=== PATIENT | female | born 1950 | race Caucasian/White ===

== ENCOUNTER 2025-04-11 12:25 | Inpatient (IN) | payer OTHER ==
[~2025-04-11] VITALS: Ht 157.5 cm; Wt 112.8 kg
[~2025-04-11 12:25] MED LIST: ALLO100T PO; APIX5TAB PO; CITA-77 PO; CLOP75TA70 PO; EMPA1TAB PO; FURO40TA4 PO; LEVO75TA6 PO; METO25TA93 PO; SACU1TAB7 PO; SPIR25TA8 PO
[2025-04-11] MEDS: ALBUTEROL SULF 2.5 MG/0.5ML(0.5%) NEB SOLN HHN ONE (13:24)
[2025-04-11] MEDS: IPRATROPIUM BROM 0.5 MG/2.5ML INH SOL HHN ONE (13:24)
--- NOTE | 2025-04-11 13:29 | ED.PDOC ---
SOB-HPI HPI Comments 74y F who presents to the ED for chief complaint of shortness of breath. Pt states she has been having flu like symptoms with associated cough, congestion, phlegm with associated yellow mucus , chills and shortness of breath for the past 2x days. Pt states she live in [facility] and denies any sick contacts. Pt otherwise in the ED has stable vitals. Pt denies any other symptoms at this time. Chief Complaint: Shortness of Breath Time Seen by MD: 13:25 Reviewed notes: Medications, Allergies Information Source: Patient Mode of Arrival: Wheelchair Brought in by: self Severity: Moderate Timing: Days Duration: Since onset Context: At Rest PE Risk Factors: None History of: COPD, CHF Prehospital treatment: None Modifying Factors: Nothing Associated Signs and Symptoms: Cough, Nasal Congestion If cough with SOB: Productive, Yellow Past Medical History PAST MEDICAL HISTORY: CHF, CKF, COPD, CVA, High Lipids, HTN, [place] Surgical History: CABG, Pacemaker, PTCA Surgical History (Other): cataracts, L leg surgery, 13x stents placed, 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 History: Denies all 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 Hx Family History Family History: Family hx of HTN Social History Smoker: Non-Smoker Alcohol: Occasionally Drugs: Denies Drug Use Lives In: Home Constitutional: reports: chills; denies: diaphoresis, fatigue, fever, malaise, sweats, weakness, others EENTM: reports: nose congestion; denies: blurred vision, double vision, ear bleeding, ear discharge, ear drainage, ear pain, ear ringing, eye pain, eye redness, hearing loss, mouth pain, mouth swelling, nasal discharge, nose bleeding, nose pain, photophobia, tearing, throat pain, throat swelling, voice changes, others Respiratory: reports: cough, shortness of breath; denies: hemoptysis, orthopnea, SOB at rest, SOB with excertion, stridor, wheezing, others Cardiovascular: denies: chest pain, dizzy spells, diaphoresis, Dyspnea on exertion, edema, irregular heart beat, left arm pain, lightheadedness, palpitations, PND, syncope, others Gastrointestinal: denies: abdomen distended, abdominal pain, blood streaked bowels, constipated, diarrhea, dysphagia, difficulty swallowing, hematemesis, melena, nausea, poor appetite, poor fluid intake, rectal bleeding, rectal pain, vomiting, others Genitourinary: denies: abnormal vagina bleeding, burning, dyspareunia, dysuria, flank pain, frequency, hematuria, incontinence, pain, , vagina di scharge, urgency, others Neurological: denies: dizziness, fainting, headache, left sided numbness, left sided weakness, numbness, paresthesia, pre-existing deficit, right sided numbness, right sided weakness, seizure, speech problems, tingling, tremors, weakness, others Musculoskeletal: denies: back pain, gout, joint pain, joint swelling, muscle pain, muscle stiffness, neck pain, others Integumetry: denies: bruises, change in color, change in hair/nails, dryness, laceration, lesions, lumps, rash, wounds, others Allergic/Immunocompromised: denies: Difficulty Healing, Frequent Infections, Hives, Itching, others Hematologic/Lymphatic: denies: anemia, blood clots, easy bleeding, easy bruising, swollen glands, others Endocrine: denies: excessive hunger, excessive sweating, excessive thirst, excessive urination, flushing, intolerance to cold, intolerance to heat, unexplained weight gain, unexplained weight loss, others Psychiatric: denies: anxiety, bipolar disorder, depression, hopeless, panic disorder, schizophrenia, sleepless, suicidal, others All Other Systems: Reviewed and Negative Physical Exam General Appearance: Moderate Distress, Obese HEENT: Normal ENT Inspection, Pharynx Normal, TMs Normal Neck: Full Range of Motion, Non-Tender, Normal, Normal Inspection Respiratory: Chest Non-Tender, Decreased Breath Sounds, No Accessory Muscle Use, Respiratory Distress, Wheezing Cardiovascular: No Edema, No JVD, No Murmur, No Gallop, Normal Peripheral Pulses, Regular Rate/Rhythm Breast Exam: Deferred Gastrointestinal: No Organomegaly, Non Tender, No Pulsatile Mass, Normal Bowel Sounds, Soft Genitalia: Deferred Pelvic: Deferred Rectal: Deferred Extremities: No calf tenderness, Normal capillary refill, Normal inspection, Normal range of motion, Non-tender, No pedal edema Musculoskeletal : Apperance: Normal Neurologic: Alert, theoretical physicist II-XII nml as Tested, No Motor Deficits, Normal Affect, Normal Mood, No Sensory Deficits Cerebellar Function: Normal Reflexes: Normal Skin: Dry, Pallor, Warm Lymphatic: No Adenopathy EKG EKG : Pulse Rate (adult): 74 [place]: Normal Cardiac Rhythm: NSR Block: None Hypertrophy: None ST: Normal Was a procedure done? Was a procedure done?: No Differential Dx Differential Diagnosis: Bronchitis, CHF, COPD, Myocardial infarction, Pneumonia, Pulmonary Embolism, Respiratory Distress, Pharyngitis, URI Comments COVID, Influenza A and B X-Ray, Labs, Meds, VS Vital Signs Date Time Temp Pulse Resp B/P (MAP) Pulse Ox O2 Delivery O2 Flow Rate FiO2 04/11/25 13:29 74 04/11/25 13:24 18 99 Room Air* 0 21 04/11/25 12:29 97.3 78 20 144/117 96 97.3 Lab Test 04/11/25 16:00 04/11/25 14:09 04/11/25 13:10 Range/Units Troponin I High Sensitivity 64 *H 72 *H 72 *H </=34 ng/L White Blood Count 7.9 4.4-10.8 10^3/uL Red Blood Count 4.08 4.0-5.20 10^6/uL Hemoglobin 13.8 12.2-16.2 g/dL Hematocrit 41.1 36.0-46.0 % Mean Corpuscular Volume 100.8 H 80.0-100.0 fL Mean Corpuscular Hemoglobin 33.9 H 28.0-32.0 pg Mean Corpuscular Hemoglobin Concent 33.7 32.0-36.0 g/dL Red Cell Distribution Width 14.0 11.8-14.3 % Platelet Count 195 140-450 10^3/uL Mean Platelet Volume 8.1 6.9-10.8 fL Neutrophils (%) (Auto) 69.6 37.0-80.0 % Lymphocytes (%) (Auto) 16.4 10.0-50.0 % Monocytes (%) (Auto) 11.6 0.0-12.0 % Eosinophils (%) (Auto) 2.0 0.0-7.0 % Basophils (%) (Auto) 0.4 0.0-2.0 % Neutrophils # (Auto) 5.5 1.6-8.6 10 ^3/uL Lymphocytes # (Auto) 1.3 0.4-5.4 10 ^3/uL Monocytes # (Auto) 0.9 0-1.3 10 ^3/uL Eosinophils # (Auto) 0.2 0-0.8 10 ^3/uL Basophils # (Auto) 0 0-0.2 10 ^3/uL Nucleated Red Blood Cells 0.1 % Sodium Level 141 136-145 mmol/L Potassium Level 3.7 3.5-5.1 mmol/L Chloride Level 106 98-107 mmol/L Carbon Dioxide Level 26 20-31 mmol/L Anion Gap 9 5-15 Blood Urea Nitrogen 19 9-23 mg/dL Creatinine 1.15 H 0.550-1.02 mg/dL Glomerular Filtration Rate Calc 50 >90 mL/min BUN/Creatinine Ratio 16.5 10.0-20.0 Serum Glucose 101 74-106 mg/dL Calcium Level 9.3 8.7-10.4 mg/dL B-Type Natriuretic Peptide 194.53 0-100 pg/mL Current Medications Medications (Trade) Dose Ordered Sig/Bonilla Route Start Time Stop Time Status Last Admin Methylprednisolone Sodium Succinate (Solu Medrol) 125 mg ONCE ONCE IV 04/11/25 13:15 04/11/25 13:16 DC 04/11/25 16:23 Ipratropium [place] (Atrovent Medneb) 1 mg ONCE ONCE [facility] 04/11/25 13:15 04/11/25 13:16 DC 04/11/25 13:24 Albuterol (Ventolin Medneb) 20 mg ONCE ONCE [facility] 04/11/25 13:15 04/11/25 13:16 DC 04/11/25 13:24 PROCEDURE(s): CXRP - CHEST PORTABLE IMPRESSION: 1. Cardiomegaly with CHF IV Hep-Lock was established The patient was given Lasix 40 mg IV push after the chest x-ray shows CHF The patient was given Solu-Medrol 125 mg IV push The patient was given a continuous breathing treatment of albuterol and Atrovent. The patient's CBC is within normal limits The chemistry panel shows a creatinine of 1.15 but otherwise within normal range. The troponin level has remained elevated at 72 and 64 The patient is being admitted at this time The patient understands and agrees with the management. Images Reviewed?: Images reviewed and evaluated by me Time of 1ST Reevaluation: 13:55 Reevaluation 1ST: Unchanged Patient Education/Counseling: Diagnosis, Treatment, Prognosis Family Education/Counseling: No Family Present SEPSIS Sepsis Screen Date sepsis recognized/suspect: Apr 11, 2025 Time Sepsis recognized/suspect: 1232 Recent Procedure: No On Antibiotic Therapy: No Respiratory Rate >20: No Heart Rate >90: No Temp<36 C (96.8 F) or >38.3 C: No SBP <90 or MAP <65 mmHG: No New Acute Mental Status Change: No Is the patient on CPAP, BIPAP,: No Physician Orders Urinalysis (04/11/25 13:02) Chest Portable (04/11/25 13:02) Heplock Iv (04/11/25 13:02) Pulse Oximetry (04/11/25 13:02) Steam Fitter Supervisor Maintenance (04/11/25 13:02) Blood Pressure (04/11/25 13:02) Electrocardigram (04/11/25 13:02) Electrocardigram (04/11/25 14:02) Electrocardigram (04/11/25 16:02) Vital Signs Date Time Temp Pulse Resp B/P (MAP) Pulse Ox O2 Delivery O2 Flow Rate FiO2 04/11/25 13:29 74 04/11/25 13:24 18 99 Room Air* 0 21 04/11/25 12:29 97.3 78 20 144/117 96 97.3 Laboratory Tests Test 04/11/25 13:10 White Blood Count 7.9 10^3/uL (4.4-10.8) Medications Medications Dose Ordered Sig/Bonilla Route Start Time Stop Time Status Last Admin Dose Admin Albuterol 20 mg ONCE ONCE [facility] 04/11/25 13:15 04/11/25 13:16 DC 04/11/25 13:24 Ipratropium [place] 1 mg ONCE ONCE [facility] 04/11/25 13:15 04/11/25 13:16 DC 04/11/25 13:24 Methylprednisolone Sodium Succinate 125 mg ONCE ONCE IV 04/11/25 13:15 04/11/25 13:16 DC 04/11/25 16:23 Departure 1 Departure Time of Disposition: 16:49 Impression: Primary Impression: Acute on chronic diastolic heart failure Additional Impressions: COPD exacerbation Elevated troponin I level Disposition: 09 ADMITTED INPATIENT Admit to: [facility] Condition: Fair Critical Care Note Critical Care Time?: Yes (45 min-critical care time only) Stability Stability form required: Yes Unstable for transfer: Telemetry monitoring (Telemetry monitoring required), ED Physician Assesment (Clinical assesment) Heart Score Heart Score: Heart Score Response (Comments) Value History Moderate Suspicious 1 EKG Normal 0 Age >65 2 Risk Factors >3 or Hx ASHD 2 Troponin 1-2 x's Normal limit 1 Total 6 I personally scribed for RAVINDER RODGERS MD ([email or web address]) on 04/11/25 at 13:29. Electronically submitted by Raffi Rowland ([employer]). I personally scribed for RAVINDER RODGERS MD ([email or web address]) on 04/11/25 at 14:36. Electronically submitted by Raffi Rowland ([employer]). RAVINDER RODGERS MD Apr 11, 2025 13:29
[2025-04-11 13:32] LABS: Hematocrit 41.1 % (36.0-46.0); Hemoglobin 13.8 g/dL (12.2-16.2); Mean Corpuscular Hemoglobin 33.9 pg (28.0-32.0); Mean Corpuscular Volume 100.8 fL (80.0-100.0); Nucleated Red Blood Cells % 0.1 %
[2025-04-11 13:37] LABS: Chloride 106 mmol/L (98-107); Potassium 3.7 mmol/L (3.5-5.1); Sodium 141 mmol/L (136-145)
[2025-04-11 13:38] LABS: Anion Gap 9 (5-15); Calcium 9.3 mg/dL (8.7-10.4); Carbon Dioxide 26 mmol/L (20-31)
[2025-04-11 13:43] LABS: BUN/Creatinine Ratio 16.5 (10.0-20.0); Blood Urea Nitrogen 19 mg/dL (9-23); Glucose 101 mg/dL (74-106)
--- NOTE | 2025-04-11 13:46 | DVH ---
INDICATION: sob TECHNIQUE: Frontal view of the chest. COMPARISON: XY CHEST XRAY 1 VIEW on DOS: 01/02/24 FINDINGS: Left pacemaker.. Cardiomegaly. There is no evidence of pleural disease. The lungs are clear. The bony structures of the chest are intact without fracture. IMPRESSION: 1. Cardiomegaly with CHF
[2025-04-11] MEDS: methylPREDNISolone SOD SUCC 125 MG/2 ML VL IV ONE (16:23)
[2025-04-11] MEDS ORDERED: ACETAMINOPHEN 325 MG TAB PO PRN (16:30)
[2025-04-11] MEDS: FUROSEMIDE 40 MG/4 ML VIAL IV ONE ×2 (16:30→18:29)
[2025-04-11] MEDS ORDERED: ONDANSETRON HCL 4 MG/2 ML VIAL IV PRN (16:30)
[2025-04-11] MEDS: AZITHROMYCIN 500MG/250ML 250 ML IV ONE (16:30)
--- NOTE | 2025-04-11 17:55 | DVHHP2 ---
History of Present Illness Reason for Visit: Shortness for breath History of Present Illness 74-year-old female presents for evaluation of shortness for breath. Patient endorses a two day history of feeling congested with associated cough with yellow phlegm as well as generalized weakness with fatigue. Reports mild chest pressure as well. Reports intermittent chills. Past Medical History Chronic kidney disease, CHF, COPD, CVA, dyslipidemia, hypertension Past Surgical History CABG, pacemaker, PTCA, left leg surgery Family History Noncontributory Smoke: No Drugs: None Lives: with Family Review of Systems Review of Systems Review of systems are currently negative otherwise addressed in HPI. Allergies: Coded Allergies: Heparin (Verified Allergy, Unknown, 04/11/25) Medications Current Medications Medications Dose Ordered Sig/Bonilla Route Start Time Stop Time Status Last Admin Dose Admin Furosemide 20 mg BIDD IV 04/12/25 06:00 Azithromycin 250 ml @ 125 mls/hr DAILY IV 04/12/25 10:00 Albuterol 2.5 mg Q6HPRN PRN NEB 04/11/25 16:30 Empaglifozin 10 mg DAILY PO 04/12/25 10:00 Levothyroxine Sodium 75 mcg QAM@0600 PO 04/12/25 06:00 Sacubitril/ Valsartan 1 tab BID PO 04/11/25 22:00 Apixaban 5 mg BID PO 04/11/25 22:00 Clopidogrel Bisulfate 75 mg DAILY PO 04/12/25 10:00 Metoprolol Succinate 25 mg DAILY PO 04/12/25 10:00 Ondansetron HCl 4 mg Q4HP PRN IV 04/11/25 16:30 Acetaminophen 650 mg Q6HP PRN PO 04/11/25 16:30 Exam Vital Signs Vital Signs Date Time Temp Pulse Resp B/P (MAP) Pulse Ox O2 Delivery O2 Flow Rate FiO2 04/11/25 17:09 98.0 93 20 150/58 (88) 99 98.0 04/11/25 16:24 Room Air 0 04/11/25 16:23 21 Exam Gen: 74-year-old female in mild distress Skin: Warm, dry, normal color and texture, no rash. HEENT: Normocephalic atraumatic, mucous membranes moist and pink. Neck: Cervical and supraclavicular nodes normal without enlargement, trachea is midline, thyroid gland is normal without masses. Pulmonary: Rhonchi Cardiac: Regular rate and rhythm. No murmur Abdomen: Soft, nontender, nondistended, bowel sounds present all 4 quadrants, no guarding, no rigidity, no organomegaly. Extremities: No cyanosis, clubbing, no edema Neuro: Cranial nerves II through XII grossly intact, normal affect and speech, no focal motor deficits. Labs/Xrays ORDERING PHYSICIAN: RAVINDER RODGERS MD PROCEDURE(s): CXRP - CHEST PORTABLE REASON: sob ORDER NUMBER(s): [id number], ACCESSION NUMBER(s): [id number] INDICATION: sob TECHNIQUE: Frontal view of the chest. COMPARISON: XY CHEST XRAY 1 VIEW on DOS: 01/02/24 FINDINGS: Left pacemaker.. Cardiomegaly. There is no evidence of pleural disease. The lungs are clear. The bony structures of the chest are intact without fr acture. IMPRESSION: 1. Cardiomegaly with CHF Labs Test 04/11/25 16:00 04/11/25 13:10 Range/Units Troponin I High Sensitivity 64 *H </=34 ng/L White Blood Count 7.9 4.4-10.8 10^3/uL Red Blood Count 4.08 4.0-5.20 10^6/uL Hemoglobin 13.8 12.2-16.2 g/dL Hematocrit 41.1 36.0-46.0 % Mean Corpuscular Volume 100.8 H 80.0-100.0 fL Mean Corpuscular Hemoglobin 33.9 H 28.0-32.0 pg Mean Corpuscular Hemoglobin Concent 33.7 32.0-36.0 g/dL Red Cell Distribution Width 14.0 11.8-14.3 % Platelet Count 195 140-450 10^3/uL Mean Platelet Volume 8.1 6.9-10.8 fL Neutrophils (%) (Auto) 69.6 37.0-80.0 % Lymphocytes (%) (Auto) 16.4 10.0-50.0 % Monocytes (%) (Auto) 11.6 0.0-12.0 % Eosinophils (%) (Auto) 2.0 0.0-7.0 % Basophils (%) (Auto) 0.4 0.0-2.0 % Neutrophils # (Auto) 5.5 1.6-8.6 10 ^3/uL Lymphocytes # (Auto) 1.3 0.4-5.4 10 ^3/uL Monocytes # (Auto) 0.9 0-1.3 10 ^3/uL Eosinophils # (Auto) 0.2 0-0.8 10 ^3/uL Basophils # (Auto) 0 0-0.2 10 ^3/uL Nucleated Red Blood Cells 0.1 % Sodium Level 141 136-145 mmol/L Potassium Level 3.7 3.5-5.1 mmol/L Chloride Level 106 98-107 mmol/L Carbon Dioxide Level 26 20-31 mmol/L Anion Gap 9 5-15 Blood Urea Nitrogen 19 9-23 mg/dL Creatinine 1.15 H 0.550-1.02 mg/dL Glomerular Filtration Rate Calc 50 >90 mL/min BUN/Creatinine Ratio 16.5 10.0-20.0 Serum Glucose 101 74-106 mg/dL Calcium Level 9.3 8.7-10.4 mg/dL B-Type Natriuretic Peptide 194.53 0-100 pg/mL SEPSIS Sepsis Screen Date sepsis recognized/suspect: Apr 11, 2025 Time Sepsis recognized/suspect: 1709 Recent Procedure: No On Antibiotic Therapy: No Respiratory Rate >20: No Heart Rate >90: Yes Temp<36 C (96.8 F) or >38.3 C: No SBP <90 or MAP <65 mmHG: No New Acute Mental Status Change: No Is the patient on CPAP, BIPAP,: No Physician Orders Urinalysis (04/11/25 13:02) Chest Portable (04/11/25 13:02) Heplock Iv (04/11/25 13:02) Pulse Oximetry (04/11/25 13:02) Electrolog Operator (04/11/25 13:02) Blood Pressure (04/11/25 13:02) Electrocardigram (04/11/25 13:02) Electrocardigram (04/11/25 14:02) Electrocardigram (04/11/25 16:02) Furosemide Injection (Lasix Injection) (04/12/25 06:00) Azithromycin 500mg/250ml (Zithromax 500m (04/11/25 16:30) Azithromycin 500mg/250ml (Zithromax 500m (04/12/25 10:00) Albuterol Medneb (Ventolin Medneb) (04/11/25 16:30) Empagliflozin (Jardiance) (04/12/25 10:00) Levothyroxine Tablet (Synthroid Tablet) (04/12/25 06:00) Sacubitril-Valsartan (Entresto 24-26 Mg (04/11/25 22:00) Apixaban (Eliquis) (04/11/25 22:00) Clopidogrel Bisulfate (Plavix) (04/12/25 10:00) Metoprolol Xl Succinate (Toprol Xl) (04/12/25 10:00) Basic Metabolic Panel (04/12/25 04:00) Admit (04/11/25 16:22) Ondansetron Hcl (Zofran) (04/11/25 16:30) Complete Blood Count (04/12/25 04:00) Cardiac Diet-2gna,Lofat,Lochol (04/11/25 Dinner) Echo 2d Mode Cardiac Dop (04/11/25 16:22) Condition: Stable (04/11/25 16:22) Acetaminophen Tablet (Tylenol Tablet) (04/11/25 16:30) Bedrest With Bathroom Privileg (04/11/25 16:22) Aspirin Tablet (04/12/25 10:00) Vital Signs Date Time Temp Pulse Resp B/P (MAP) Pulse Ox O2 Delivery O2 Flow Rate FiO2 04/11/25 17:09 98.0 93 20 150/58 (88) 99 98.0 04/11/25 16:57 98.0 93 20 150/58 (88) 99 98.0 04/11/25 16:24 18 Room Air 0 04/11/25 16:23 94 Room Air* 0 21 04/11/25 13:29 74 04/11/25 13:24 18 99 Room Air* 0 21 04/11/25 12:29 97.3 78 20 144/117 96 97.3 Laboratory Tests Test 04/11/25 13:10 White Blood Count 7.9 10^3/uL (4.4-10.8) Medications Medications Dose Ordered Sig/Bonilla Route Start Time Stop Time Status Last Admin Dose Admin Albuterol 20 mg ONCE ONCE [facility] 04/11/25 13:15 04/11/25 13:16 DC 04/11/25 13:24 20 MG Ipratropium [place] 1 mg ONCE ONCE [facility] 04/11/25 13:15 04/11/25 13:16 DC 04/11/25 13:24 1 MG Methylprednisolone Sodium Succinate 125 mg ONCE ONCE IV 04/11/25 13:15 04/11/25 13:16 DC 04/11/25 16:23 125 MG Assessment/Plan Assessment/Plan Assessment Acute on chronic respiratory failure CHF with possible exacerbation Acute pneumonitis Hypertension History of [place] Status post pacemaker Plan Admit the patient to telemetry to the hospitalist IV Lasix Azithromycin Med nebs Resume home medications Continue treatment per orders Plan discussed with: Patient My Orders Orders - GLADYS GUERRA Procedure Category Date Status Time Furosemide Injection PHA 04/12/25 In Process (Lasix Injection) 06:00 Azithromycin PHA 04/11/25 In Process 500mg/250ml 16:30 Azithromycin PHA 04/12/25 In Process 500mg/250ml 10:00 Albuterol Medneb PHA 04/11/25 In Process (Ventolin Medneb) 16:30 Empagliflozin PHA 04/12/25 In Process (Jardiance) 10:00 Levothyroxine Tablet PHA 04/12/25 In Process (Synthroid Tablet) 06:00 Sacubitril-Valsartan PHA 04/11/25 In Process (Entresto 24-26 Mg 22:00 Apixaban (Eliquis) PHA 04/11/25 In Process 22:00 Clopidogrel Bisulfate PHA 04/12/25 In Process (Plavix) 10:00 Metoprolol Xl PHA 04/12/25 In Process Succinate (Toprol Xl) 10:00 Basic Metabolic Panel LAB 04/12/25 Verified 04:00 Admit ADMIT 04/11/25 Transmitted 16:22 Ondansetron Hcl PHA 04/11/25 In Process (Zofran) 16:30 Complete Blood Count LAB 04/12/25 Verified 04:00 Cardiac DIET 04/11/25 Transmitted Diet-2gna,Lofat,Lochol Dinner Echo 2d Mode Cardiac US 04/11/25 Logged DOP 16:22 Condition: Stable [place]COE 04/11/25 In Process 16:22 Acetaminophen Tablet PHA 04/11/25 In Process (Tylenol Tablet) 16:30 Bedrest With Bathroom [place]COE 04/11/25 In Process Privileg 16:22 Aspirin Tablet PHA 04/12/25 Verified 10:00 Date of Service: Apr 11, 2025 Billing Provider: GLADYS GUERRA Common Visit Codes: [id number] INP/OBS CARE (HIGH) GLADYS GUERRA Apr 11, 2025 17:55
[2025-04-11 18:00] VITALS: BP 125/86; PULSE 86; RESP 18; TEMP 98.5; O2SAT 100
[2025-04-11 20:01] VITALS: BP 127/86; PULSE 93; RESP 18; O2SAT 100
[2025-04-11 20:54] VITALS: PULSE 85; RESP 15; O2SAT 99
[2025-04-11] MEDS: ALBUTEROL SULF 2.5 MG/0.5ML(0.5%) NEB SOLN NEB PRN (20:54)
[2025-04-11 21:00] VITALS: BP 156/53; PULSE 69; PULSE 82; RESP 16; RESP 20; TEMP 97.9; O2SAT 99
[2025-04-11 22:01] VITALS: BP 164/90; PULSE 89; RESP 20; TEMP 97.5; O2SAT 96
[2025-04-11] MEDS: APIXABAN 5 MG TAB PO SCH (22:40)
[2025-04-11] MEDS: SACUBITRIL-VALSARTAN 24mg/26mg TAB PO SCH (22:40)
[2025-04-12] VITALS (11 sets, daily range): BP systolic 127–159; BP diastolic 61–82; PULSE 66–83; RESP 14–20; TEMP 97.9–99; O2SAT 94–99
[2025-04-12] MEDS ORDERED: IPRATROPIUM BROM 0.5 MG/2.5ML INH SOL ONE (05:32)
[2025-04-12] MEDS ORDERED: LEVALBUTEROL HCL 1.25 MG/3 ML NEB ONE (05:32)
[2025-04-12] MEDS: LEVOTHYROXINE SODIUM 25 MCG TAB PO SCH (05:35)
[2025-04-12] MEDS: FUROSEMIDE 20 MG/2 ML VIAL IV SCH (05:36)
[2025-04-12 06:45] LABS: Nucleated Red Blood Cells % 0.0 %
[2025-04-12 06:47] LABS: Hematocrit 42.0 % (36.0-46.0); Hemoglobin 14.5 g/dL (12.2-16.2); Mean Corpuscular Hemoglobin 34.3 pg (28.0-32.0); Mean Corpuscular Volume 99.0 fL (80.0-100.0)
[2025-04-12 06:56] LABS: Chloride 105 mmol/L (98-107); Potassium 4.3 mmol/L (3.5-5.1); Sodium 141 mmol/L (136-145)
[2025-04-12 06:57] LABS: Anion Gap 10 (5-15); Calcium 9.7 mg/dL (8.7-10.4); Carbon Dioxide 26 mmol/L (20-31)
[2025-04-12 07:02] LABS: BUN/Creatinine Ratio 13.0 (10.0-20.0); Blood Urea Nitrogen 17 mg/dL (9-23)
[2025-04-12 07:04] LABS: Glucose 133 mg/dL (74-106)
[2025-04-12] MEDS ORDERED: EMPAGLIFLOZIN 10 MG TAB PO SCH (10:00)
[2025-04-12 10:43] LABS: Urine Budding Yeast OCCASIONAL /hpf (None Seen); Urine Protein, UAD Negative (Negative)
[2025-04-12] MEDS: CLOPIDOGREL BISULFATE 75 MG TAB PO SCH (11:28)
[2025-04-12] MEDS: ASPirin-EC 81 mg tab PO SCH (11:29)
[2025-04-12] MEDS: EMPAGLIFLOZIN 10 MG TAB PO SCH (11:29)
[2025-04-12] MEDS: METOPROLOL SUCCINATE XL 50 MG TAB PO SCH (11:30)
[2025-04-12] MEDS: AZITHROMYCIN 500MG/250ML 250 ML IV SCH (11:34)
--- NOTE | 2025-04-12 13:13 | DVHPN2 ---
Changes from previous H/P or p: No Changes Objective Vitals Vital Signs Date Time Temp Pulse Resp B/P (MAP) Pulse Ox O2 Delivery O2 Flow Rate FiO2 04/12/25 11:30 82 144/82 04/12/25 10:11 17 99 04/12/25 10:05 Room Air* 0 21 04/12/25 08:52 98.5 98.5 Intake/Output Intake and Output 04/12/25 07:00 Intake Total 1040 ml Balance 1040 ml Intake Oral 1040 ml # Voids 5 Medications Current Medications Medications Dose Ordered Sig/Bonilla Route Start Time Stop Time Status Last Admin Dose Admin Furosemide 20 mg BIDD IV 04/12/25 06:00 04/12/25 05:36 20 MG Azithromycin 250 ml @ 125 mls/hr DAILY IV 04/12/25 10:00 04/12/25 11:34 125 MLS/HR Albuterol 2.5 mg Q6HPRN PRN NEB 04/11/25 16:30 04/12/25 10:05 2.5 MG Empaglifozin 10 mg DAILY PO 04/12/25 10:00 04/12/25 11:29 10 MG Levothyroxine Sodium 75 mcg QAM@0600 PO 04/12/25 06:00 04/12/25 05:35 75 MCG Sacubitril/ Valsartan 1 tab BID PO 04/11/25 22:00 04/12/25 11:28 1 TAB Apixaban 5 mg BID PO 04/11/25 22:00 04/12/25 11:39 5 MG Clopidogrel Bisulfate 75 mg DAILY PO 04/12/25 10:00 04/12/25 11:28 75 MG Metoprolol Succinate 25 mg DAILY PO 04/12/25 10:00 04/12/25 11:30 25 MG Ondansetron HCl 4 mg Q4HP PRN IV 04/11/25 16:30 Acetaminophen 650 mg Q6HP PRN PO 04/11/25 16:30 Aspirin 81 mg DAILY PO 04/12/25 10:00 04/12/25 11:29 81 MG Laboratory Results Laboratory Tests 04/12/25 06:19 Chemistry Test 04/11/25 13:10 04/12/25 06:19 Calcium Level 9.3 mg/dL (8.7-10.4) 9.7 mg/dL (8.7-10.4) Cardiac Markers Test 04/11/25 13:10 B-Type Natriuretic Peptide 194.53 pg/mL (0-100) Urinalysis Test 04/12/25 09:55 Urine Color Colorless (Yellow) Urine Clarity Clear (Clear) Urine pH 5.0 (5.0-9.0) Urine Specific [place] 1.006 (1.001-1.035) Urine Protein Negative (Negative) Urine Ketones Negative (Negative) Urine Blood Negative /uL (Negative) Urine Nitrite Negative (Negative) Urine Bilirubin Negative (Negative) Urine Urobilinogen Normal mg/dL (Negative) Urine Leukocyte Esterase Trace /uL (Negative) Urine RBC 1 /hpf (0 - 4) Urine Microscopic WBC 1 /HPF (0-5) Urine Squamous Epithelial Cells Few /hpf (<5) Urine Bacteria None seen /hpf (None Seen) Urine Yeast (Budding) Occasional /hpf (None Urine Glucose Normal mg/dL (Normal) Labs and/or images reviewed: Labs reviewed by me, Image(s) reviewed by me Assessment/Plan Assessment/Plan Acute on chronic respiratory failure CHF with possible exacerbation: Consult for patient's director of collections and archives Dr. Marmolejo Acute pneumonitis Hypertension History of [place] Status post pacemaker Acute COPD exacerbation Hypercholesterolemia History of CVA History of CABG History of stents History of pacemaker Time spent 70 minutes Advanced care planning time 20 minutes Tamika test and flu test done in the urgent care yesterday was negative per patient PCP Dr. Street Plan discussed with: Patient My Orders Orders - CELESTINE HARDY MD Procedure Category Date Status Time Rapid Influenza A&B LAB 04/12/25 Verified 12:57 Covid19 Antigen Aminata LAB 04/12/25 Verified Date of Service: Apr 12, 2025 Billing Provider: CELESTINE HARDY MD Common Visit Codes: [id number] INP/OBS CARE(HIGH) CELESTINE HARDY MD Apr 12, 2025 13:13
[2025-04-12] MEDS: FUROSEMIDE 20 MG/2 ML VIAL IV ONE (14:49)
--- NOTE | 2025-04-12 15:38 | DVHINCON2 ---
Date Seen: Apr 12, 2025 Referring Physician MD Jeremiah Reason for Consultation CHF exacerbation History of Present Illness This is a 74-year-old female patient who presents to the emergency room with chief complaint of shortness of breath, cough, and congestion for three days prior to emergency room arrival. The patient states that she went to an appointment for an outpatient echocardiogram at her primary host's office and was told by office staff that she should be evaluated at the urgent care. The patient was taken to urgent care and then transferred over to the emergency room for her symptoms. Cardiology has now been consulted for CHF exacerbation. No twelve lead electrocardiogram found in patient's hard chart or via cardio food beverage server. The patient is also not on telemetry monitoring. A twelve lead electrocardiogram was ordered at time of assessment and reveals V paced rhythm. Initial troponin level of 72ng/L with down trend thereafter. The patient denies any cardiac symptoms at time of assessment such as chest pain, shortness of breath, palpitations, or dizziness. Significant past medical history includes severe coronary artery disease status post triple-vessel CABG in 2003, coronary artery disease status post multiple PTCAs X 15 RADHIKA (on Plavix and Eliquis), congestive heart failure, hypertension, dyslipidemia, presence of permanent pacemaker (Biotronik), unspecified atrial fibrillation (on Eliquis), severe mitral valve regurgitation status post MitraClip, COPD, thyroid disease, and obesity. The patient reports that she follows up with in the outpatient setting and also has a host at [facility] since having her MitraClip placed. The patient's most recent coronary angiogram took place at this facility on 06/08/2024 in which PTCA and stenting of the RCA was performed at that time by . Of note, patient has been here multiple times under a different medical record ( ). Past Medical History Past medical history reviewed. No other significant than mentioned above. Past Surgical History Triple-vessel CABG in 2003 MitaClip in December 2023 Permanent pacemaker insertion (Biotronik) on 09/28/2022 Left ankle surgery Family History: Cardiovascular disease G8 MOTHER G8 FATHER Diabetes mellitus G8 MOTHER FH: leukemia G8 FATHER Ischemic heart disease G8 FATHER Family History Family history reviewed. Social History Patient has a 60 pack-year history, quit smoking 30 years ago Denies any illicit drug use Admits to social alcohol use Allergies: Coded Allergies: Heparin (Verified Allergy, Unknown, 04/11/25) Home Meds Reported Medications Metoprolol Succinate (Metoprolol Succinate Er) 25 Mg Tab, 12.5 MG PO BID for 45 Days, #90 04/12/25 Spironolactone (Spironolactone) 25 Mg Tab, 1 TAB PO DAILY for 90 Days, #90 04/12/25 Clopidogrel Bisulfate (CLOPIDOGREL) 75 Mg Tab, 1 TAB PO DAILY for 90 Days, #90 04/12/25 Citalopram Hydrobromide (Citalopram Hydrobromide) 20 Mg Tab, 1 TAB PO DAILY for 90 Days, #90 04/12/25 Apixaban Base (ELIQUIS) 5 Mg Tab, 1 TAB PO BID for 30 Days, #60 04/12/25 Allopurinol (Allopurinol) 100 Mg Tab, 1 TAB PO DAILY for 90 Days, #90 04/12/25 Sacubitril-Valsartan (Entresto 49-51 mg) 1 Tab Tab, 1 TAB PO BID for 30 Days, #60 04/12/25 Furosemide (Furosemide) 40 Mg Tab, 1 TAB PO DAILY for 90 Days, #90 04/12/25 Levothyroxine Sodium (Levothyroxine Sodium) 75 Mcg Tab, 1 TAB PO DAILY for 90 Days, #90 04/12/25 Empagliflozin (Jardiance) 10 Mg Tab, 1 TAB PO DAILY for 90 Days, #90 TAKE 1 TABLET BY MOUTH ONCE DAILY IN THE MORNING 04/12/25 Home Meds Home medications reviewed. Current Medications Current Medications Medications (Trade) Dose Ordered Sig/Bonilla Route PRN Reason Start Time Stop Time Status Last Admin Furosemide (Lasix Injection) 20 mg BIDD IV 04/12/25 06:00 04/12/25 13:09 DC 04/12/25 05:36 Azithromycin 250 ml @ 125 mls/hr DAILY IV 04/12/25 10:00 04/12/25 11:34 Albuterol (Ventolin Medneb) 2.5 mg Q6HPRN PRN NEB SHORTNESS OF BREATH 04/11/25 16:30 04/12/25 10:05 Empaglifozin (Jardiance) 10 mg DAILY PO 04/12/25 10:00 04/11/25 16:39 DC Empaglifozin (Jardiance) 10 mg DAILY PO 04/12/25 10:00 04/12/25 11:29 Levothyroxine Sodium (Synthroid Tablet) 75 mcg QAM@0600 PO 04/12/25 06:00 04/12/25 05:35 Sacubitril/ Valsartan (Entresto 24-26 Mg tab) 1 tab BID PO 04/11/25 22:00 04/12/25 11:28 Apixaban (Eliquis) 5 mg BID PO 04/11/25 22:00 04/12/25 11:39 Clopidogrel Bisulfate (Plavix) 75 mg DAILY PO 04/12/25 10:00 04/12/25 11:28 Metoprolol Succinate (Toprol Xl) 25 mg DAILY PO 04/12/25 10:00 04/12/25 11:30 Ondansetron HCl (Zofran) 4 mg Q4HP PRN IV NAUSEA / VOMITING 04/11/25 16:30 Acetaminophen (Tylenol Tablet) 650 mg Q6HP PRN PO PAIN SCALE 1-3 OR TEMP>100.4 04/11/25 16:30 Aspirin (Ecotrin Enteric Coated Tablet) 81 mg DAILY PO 04/12/25 10:00 04/12/25 11:29 Furosemide (Lasix Injection) 40 mg BIDD IV 04/12/25 18:00 Review of Systems Constitutional: No symptom reported Ears, Nose, & Throat: No symptom reported Eyes: No symptom reported Neurological: No symptoms reported Pulmonary/Respiratory: Cough, congestion, shortness of breath Cardiovascular: No symptom reported Gastrointestinal: No symptom reported Genitourinary: No symptom reported Musculoskeletal: No symptom reported Skin: No symptom reported Psychiatric: No symptom reported Endocrine: No symptom reported Hematologic/Lymphatic: No symptom reported Vital Signs Vital Signs Date Time Temp Pulse Resp B/P (MAP) Pulse Ox O2 Delivery O2 Flow Rate FiO2 04/12/25 14:49 136/86 04/12/25 13:00 99.0 83 17 94 99.0 04/12/25 10:05 Room Air* 0 21 Physical Exam General Appearance: Cooperative. Obese Pulmonary/Respiratory: Clear, bilateral breaths sounds. Cardiovascular/Chest: Irregularly irregular rate and rhythm Peripheral Pulses: 2+ Radial (R). 2+ Radial (L). 2+ Pedal (R). 2+ Pedal (L) Abdominal Exam: Normal bowel sounds. Ankle Exam: Negative ankle edema Lower extremities: Negative lower extremity edema Neuro/Mental Status: A/OX4, coherent. Thoughts/Psych: Normal thought pattern. Appropriate mood and affect. Good judgment and insight. Appearance: No acute distress. Skin Exam: Normal inspection. Normal color. Warm and dry. Labs/Diagnostic Data Labs Test 04/12/25 09:55 04/12/25 06:19 04/11/25 16:00 04/11/25 13:10 Range/Units Urine Color Colorless Yellow Urine Clarity Clear Clear Urine pH 5.0 5.0-9.0 Urine Specific [place] 1.006 1.001-1.035 Urine Protein Negative Negative Urine Ketones Negative Negative Urine Blood Negative Negative /uL Urine Nitrite Negative Negative Urine Bilirubin Negative Negative Urine Urobilinogen Normal Negative mg/dL Urine Leukocyte Esterase Trace Negative /uL Urine RBC 1 0 - 4 /hpf Urine Microscopic WBC 1 0-5 /HPF Urine Squamous Epithelial Cells Few <5 /hpf Urine Bacteria None seen None Seen /hpf Urine Yeast (Budding) Occasional None Seen /hpf Urine Glucose Normal Normal mg/dL White Blood Count 10.0 # 4.4-10.8 10^3/uL Red Blood Count 4.24 4.0-5.20 10^6/uL Hemoglobin 14.5 12.2-16.2 g/dL Hematocrit 42.0 36.0-46.0 % Mean Corpuscular Volume 99.0 80.0-100.0 fL Mean Corpuscular Hemoglobin 34.3 H 28.0-32.0 pg Mean Corpuscular Hemoglobin Concent 34.6 32.0-36.0 g/dL Red Cell Distribution Width 13.7 11.8-14.3 % Platelet Count 209 140-450 10^3/uL Mean Platelet Volume 8.1 6.9-10.8 fL Neutrophils (%) (Auto) 93.9 H 37.0-80.0 % Lymphocytes (%) (Auto) 3.7 L 10.0-50.0 % Monocytes (%) (Auto) 2.2 0.0-12.0 % Eosinophils (%) (Auto) 0.0 0.0-7.0 % Basophils (%) (Auto) 0.2 0.0-2.0 % Neutrophils # (Auto) 9.4 H 1.6-8.6 10 ^3/uL Lymphocytes # (Auto) 0.4 0.4-5.4 10 ^3/uL Monocytes # (Auto) 0.2 0-1.3 10 ^3/uL Eosinophils # (Auto) 0 0-0.8 10 ^3/uL Basophils # (Auto) 0 0-0.2 10 ^3/uL Nucleated Red Blood Cells 0.0 % Sodium Level 141 136-145 mmol/L Potassium Level 4.3 3.5-5.1 mmol/L Chloride Level 105 98-107 mmol/L Carbon Dioxide Level 26 20-31 mmol/L Anion Gap 10 5-15 Blood Urea Nitrogen 17 9-23 mg/dL Creatinine 1.31 H 0.550-1.02 mg/dL Glomerular Filtration Rate Calc 43 >90 mL/min BUN/Creatinine Ratio 13.0 10.0-20.0 Serum Glucose 133 H 74-106 mg/dL Calcium Level 9.7 8.7-10.4 mg/dL Troponin I High Sensitivity 64 *H </=34 ng/L B-Type Natriuretic Peptide 194.53 0-100 pg/mL Assessment Acute on chronic decompensated HFrEF, NYHA class III NSTEMI, likely type II secondary to above Severe coronary artery disease with history of triple-vessel CABG and multiple PTCAs (on Plavix) Ischemic cardiomyopathy Unspecified atrial fibrillation (on Eliquis) Severe mitral valve regurgitation status post MitraClip (December 2023) Sick sinus syndrome status post permanent pacemaker insertion (Biotronik) Hypertension Hyperlipidemia COPD Hypothyroidism History of TIA Chronic kidney disease Morbid obesity Plan/Recommendation We will continue with the following plan/recommendations (Dr. Aceves): * Obtain transthoracic echocardiogram to evaluate cardiac function * Previous echocardiogram reveals from 06/08/2024 reveals EF 30% (under different ) * Initiate guideline directed medical therapy for CHF as renal function permits * Strict intake and output, daily weights, maintain fluid restriction and low- sodium diet * Preload and afterload reduction * [id number] VASc score: 7 points * Therapeutic Lovenox, transition back to Eliquis when appropriate * Beta-keith for rate control * Continue single antiplatelet therapy (Plavix) and lipid-lowering agent * AVOID TRIPLE THERAPY. PLEASE DO NOT RESTART ASPIRIN. * Upgrade to telemetry monitoring for close cardiac surveillance Case discussed with . Thank you for allowing us to care for this patient. Please call with any questions or concerns. Critical care time spent: 44 minutes This medical document was created using an electronic medical record system with voice recognition software and computerized dictation system. Although this document has been carefully reviewed, there might still be some phonetic and t ypographical errors. Occasional wrong-word or ``sound-alike substitutions may have occurred due to the inherent limitations of voice recognition software. These areas are purely typographical due to imperfections of the software programs and do not reflect any compromise in the patient's medical care. Please read the chart carefully and recognize, using context, where these snyder bstitutions have occurred. Plan discussed with: Patient NYHA Physical activity limitations: Class3(Marked) ordinary (activity causes symtoms) Date of Service: Apr 12, 2025 Billing Provider: LENCHO JEAN Cardiology Common Codes: [id number] INP/OBS CARE (High) Cardiology Consultation Codes: [id number] CONSULT <45MIN LENCHO JEAN Apr 12, 2025 15:38
[2025-04-12 16:08] LABS: Triglycerides 57.0 mg/dL (< 150)
[2025-04-12 16:09] LABS: Magnesium 1.9 mg/dL (1.6-2.6)
[2025-04-12 16:10] LABS: Cholesterol 141.0 mg/dL (< 200); HDL Cholesterol 52.0 mg/dL (40-59)
[2025-04-12] MEDS: FUROSEMIDE 40 MG/4 ML VIAL IV SCH (18:17)
[2025-04-12] MEDS ORDERED: ENOXAPARIN SOD 100 MG/1 ML SYRINGE SC SCH (22:00)
--- NOTE | 2025-04-12 23:02 | DVHINCON2 ---
Date Seen: Apr 12, 2025 Referring Physician MD Jeremiah Reason for Consultation CHF exacerbation History of Present Illness This is a 74-year-old female with a past medical history includes severe coronary artery disease status post triple-vessel CABG in 2003, coronary artery disease status post multiple PTCAs X 15 RADHIKA (on Plavix and Eliquis), congestive heart failure, hypertension, dyslipidemia, presence of permanent pacemaker (Biotronik), unspecified atrial fibrillation (on Eliquis), severe mitral valve regurgitation status post MitraClip, COPD, thyroid disease, and obesity who presents to the emergency room with a complaint of shortness of breath, cough, and congestion for three days prior to emergency room arrival. The patient states that she went to an appointment for an outpatient echocardiogram at her primary chromium plater's office and was told by office staff that she should be evaluated at the urgent care. The patient was taken to urgent care and then transferred over to the emergency room for her symptoms. No twelve lead electrocardiogram found in patient's hard chart or via cardio seismic prospecting observer. The patient is also not on telemetry monitoring. A twelve lead electrocardiogram was ordered at time of assessment and reveals V paced rhythm. Initial troponin level of 72ng/L with down trend thereafter. The patient denies any cardiac symptoms at time of assessment such as chest pain, shortness of breath, palpitations, or dizziness. The patient reports that she follows up with in the outpatient setting and also has a chromium plater at [facility] since having her MitraClip placed. The patient's most recent coronary angiogram took place at this facility on 06/08/2024 in which PTCA and stenting of the RCA was performed at that time by . Of note, patient has been here multiple times under a different medical record ( ). Cardiology has now been consulted for CHF exacerbation. Past Medical History Past medical history reviewed. No other significant than mentioned above. 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) Home Meds Reported Medications Metoprolol Succinate (Metoprolol Succinate Er) 25 Mg Tab, 12.5 MG PO BID for 45 Days, #90 04/12/25 Spironolactone (Spironolactone) 25 Mg Tab, 1 TAB PO DAILY for 90 Days, #90 04/12/25 Clopidogrel Bisulfate (CLOPIDOGREL) 75 Mg Tab, 1 TAB PO DAILY for 90 Days, #90 04/12/25 Citalopram Hydrobromide (Citalopram Hydrobromide) 20 Mg Tab, 1 TAB PO DAILY for 90 Days, #90 04/12/25 Apixaban Base (ELIQUIS) 5 Mg Tab, 1 TAB PO BID for 30 Days, #60 04/12/25 Allopurinol (Allopurinol) 100 Mg Tab, 1 TAB PO DAILY for 90 Days, #90 04/12/25 Sacubitril-Valsartan (Entresto 49-51 mg) 1 Tab Tab, 1 TAB PO BID for 30 Days, #60 04/12/25 Furosemide (Furosemide) 40 Mg Tab, 1 TAB PO DAILY for 90 Days, #90 04/12/25 Levothyroxine Sodium (Levothyroxine Sodium) 75 Mcg Tab, 1 TAB PO DAILY for 90 Days, #90 04/12/25 Empagliflozin (Jardiance) 10 Mg Tab, 1 TAB PO DAILY for 90 Days, #90 TAKE 1 TABLET BY MOUTH ONCE DAILY IN THE MORNING 04/12/25 Current Medications Current Medications Medications (Trade) Dose Ordered Sig/Bonilla Route PRN Reason Start Time Stop Time Status Last Admin Furosemide (Lasix Injection) 20 mg BIDD IV 04/12/25 06:00 04/12/25 13:09 DC 04/12/25 05:36 Azithromycin 250 ml @ 125 mls/hr DAILY IV 04/12/25 10:00 04/12/25 11:34 Empaglifozin (Jardiance) 10 mg DAILY PO 04/12/25 10:00 04/11/25 16:39 DC Empaglifozin (Jardiance) 10 mg DAILY PO 04/12/25 10:00 04/12/25 11:29 Levothyroxine Sodium (Synthroid Tablet) 75 mcg QAM@0600 PO 04/12/25 06:00 04/12/25 05:35 Clopidogrel Bisulfate (Plavix) 75 mg DAILY PO 04/12/25 10:00 04/12/25 11:28 Metoprolol Succinate (Toprol Xl) 25 mg DAILY PO 04/12/25 10:00 04/12/25 11:30 Aspirin (Ecotrin Enteric Coated Tablet) 81 mg DAILY PO 04/12/25 10:00 04/12/25 15:52 DC 04/12/25 11:29 Furosemide (Lasix Injection) 40 mg BIDD IV 04/12/25 18:00 04/12/25 18:17 Enoxaparin Sodium (Lovenox) 110 mg Q12HR SC 04/12/25 22:00 UNV Review of Systems Constitutional: No symptom reported Ears, Nose, & Throat: No symptom reported Eyes: No symptom reported Neurological: No symptoms reported Pulmonary/Respiratory: Cough, congestion, shortness of breath Cardiovascular: No symptom reported Gastrointestinal: No symptom reported Genitourinary: No symptom reported Musculoskeletal: No symptom reported Skin: No symptom reported Psychiatric: No symptom reported Endocrine: No symptom reported Hematologic/Lymphatic: No symptom reported Vital Signs Vital Signs Date Time Temp Pulse Resp B/P (MAP) Pulse Ox O2 Delivery O2 Flow Rate FiO2 04/12/25 21:00 98.3 69 14 127/71 (89) 97 98.3 04/12/25 19:55 Room Air* 0 21 Physical Exam GENERAL: Alert and oriented x 3. No acute distress. Obese. EYES: PERRL, EOMI. Anicteric. HENT: Moist mucous membranes. LUNGS: Clear to auscultation bilaterally. CARDIOVASCULAR: Regular rate and rhythm. ABDOMEN: Soft, nontender and nondistended. EXTREMITIES: No edema. NEUROLOGIC: No focal neurological deficits. SKIN: Warm, dry. Labs/Diagnostic Data Labs Test 04/12/25 09:55 04/12/25 06:19 04/11/25 16:00 04/11/25 13:10 Range/Units Urine Color Colorless Yellow Urine Clarity Clear Clear Urine pH 5.0 5.0-9.0 Urine Specific [place] 1.006 1.001-1.035 Urine Protein Negative Negative Urine Ketones Negative Negative Urine Blood Negative Negative /uL Urine Nitrite Negative Negative Urine Bilirubin Negative Negative Urine Urobilinogen Normal Negative mg/dL Urine Leukocyte Esterase Trace Negative /uL Urine RBC 1 0 - 4 /hpf Urine Microscopic WBC 1 0-5 /HPF Urine Squamous Epithelial Cells Few <5 /hpf Urine Bacteria None seen None Seen /hpf Urine Yeast (Budding) Occasional None Seen /hpf Urine Glucose Normal Normal mg/dL White Blood Count 10.0 # 4.4-10.8 10^3/uL Red Blood Count 4.24 4.0-5.20 10^6/uL Hemoglobin 14.5 12.2-16.2 g/dL Hematocrit 42.0 36.0-46.0 % Mean Corpuscular Volume 99.0 80.0-100.0 fL Mean Corpuscular Hemoglobin 34.3 H 28.0-32.0 pg Mean Corpuscular Hemoglobin Concent 34.6 32.0-36.0 g/dL Red Cell Distribution Width 13.7 11.8-14.3 % Platelet Count 209 140-450 10^3/uL Mean Platelet Volume 8.1 6.9-10.8 fL Neutrophils (%) (Auto) 93.9 H 37.0-80.0 % Lymphocytes (%) (Auto) 3.7 L 10.0-50.0 % Monocytes (%) (Auto) 2.2 0.0-12.0 % Eosinophils (%) (Auto) 0.0 0.0-7.0 % Basophils (%) (Auto) 0.2 0.0-2.0 % Neutrophils # (Auto) 9.4 H 1.6-8.6 10 ^3/uL Lymphocytes # (Auto) 0.4 0.4-5.4 10 ^3/uL Monocytes # (Auto) 0.2 0-1.3 10 ^3/uL Eosinophils # (Auto) 0 0-0.8 10 ^3/uL Basophils # (Auto) 0 0-0.2 10 ^3/uL Nucleated Red Blood Cells 0.0 % Sodium Level 141 136-145 mmol/L Potassium Level 4.3 3.5-5.1 mmol/L Chloride Level 105 98-107 mmol/L Carbon Dioxide Level 26 20-31 mmol/L Anion Gap 10 5-15 Blood Urea Nitrogen 17 9-23 mg/dL Creatinine 1.31 H 0.550-1.02 mg/dL Glomerular Filtration Rate Calc 43 >90 mL/min BUN/Creatinine Ratio 13.0 10.0-20.0 Serum Glucose 133 H 74-106 mg/dL Hemoglobin A1c 5.1 <5.7 % A1C Calcium Level 9.7 8.7-10.4 mg/dL Magnesium Level 1.9 1.6-2.6 mg/dL Triglycerides Level 57 < 150 mg/dL Cholesterol Level 141 < 200 mg/dL LDL Cholesterol 83 < 100 mg/dL HDL Cholesterol 52 40-59 mg/dL Thyroid Stimulating Hormone (TSH) 1.61 0.55-4.78 uIU/mL Troponin I High Sensitivity 64 *H </=34 ng/L B-Type Natriuretic Peptide 194.53 0-100 pg/mL Assessment Acute on chronic decompensated HFrEF, NYHA class III. NSTEMI, likely type II secondary to above. Severe coronary artery disease with history of triple-vessel CABG and multiple PTCAs (on Plavix). Ischemic cardiomyopathy. Unspecified atrial fibrillation (on Eliquis). Severe mitral valve regurgitation status post MitraClip (December 2023). Sick sinus syndrome status post permanent pacemaker insertion (Biotronik). Hypertension. Hyperlipidemia. COPD. Hypothyroidism. History of TIA. Chronic kidney disease. Morbid obesity. Plan/Recommendation I agree with your ongoing assessment and care of plan. Patient has been seen by Swetha Pack NP on my behalf, her and I discussed the plan with the patient. Obtain transthoracic echocardiogram to evaluate cardiac function. Previous echocardiogram reveals from 06/08/2024 reveals EF 30% (under different ). Initiate guideline directed medical therapy for CHF as renal function permits. Strict intake and output, daily weights, maintain fluid restriction and low- sodium diet. Preload and afterload reduction. [id number] VASc score: 7 points. Therapeutic Lovenox, transition back to Eliquis when appropriate. Beta-keith for rate control. Continue single antiplatelet therapy (Plavix) and lipid-lowering agent. AVOID TRIPLE THERAPY. PLEASE DO NOT RESTART ASPIRIN. Upgrade to telemetry monitoring for close cardiac surveillance. Additional plan as per the hospital course. Plan discussed with: Patient NYHA Physical activity limitations: Class3(Marked) ordinary Date of Service: Apr 12, 2025 Billing Provider: SARAH HALL MD Cardiology Common Codes: [id number]-[id number] INP/OBS CARE (High) Cardiology Consultation Codes: [id number] CONSULT <45MIN SARAH HALL MD Apr 12, 2025 22:07
[2025-04-13] VITALS (14 sets, daily range): BP systolic 76–132; BP diastolic 55–78; PULSE 65–94; RESP 16–20; TEMP 96.5–98; O2SAT 92–100
[2025-04-13 06:05] LABS: COVID19 ANTIGEN SOFIA FIA NEGATIVE (NEGATIVE)
[2025-04-13 07:06] LABS: Hematocrit 44.8 % (36.0-46.0); Hemoglobin 14.9 g/dL (12.2-16.2); Mean Corpuscular Hemoglobin 33.1 pg (28.0-32.0); Mean Corpuscular Volume 99.2 fL (80.0-100.0); Nucleated Red Blood Cells % 0.0 %
[2025-04-13 07:22] LABS: Anion Gap 13 (5-15); Calcium 9.6 mg/dL (8.7-10.4); Carbon Dioxide 28 mmol/L (20-31); Chloride 101 mmol/L (98-107); Sodium 142 mmol/L (136-145)
[2025-04-13 07:29] LABS: BUN/Creatinine Ratio 14.4 (10.0-20.0); Blood Urea Nitrogen 24 mg/dL (9-23); Glucose 98 mg/dL (74-106); Potassium 3.4 mmol/L (3.5-5.1)
--- NOTE | 2025-04-13 09:52 | DVHPN2 ---
Reviewed: Care Plan Changes from previous H/P or p: No Changes Objective Vitals Vital Signs Date Time Temp Pulse Resp B/P (MAP) Pulse Ox O2 Delivery O2 Flow Rate FiO2 04/13/25 08:46 97.6 69 17 102/59 (73) 96 97.6 04/12/25 20:00 Room Air* 0 21 Intake/Output Intake and Output 04/13/25 07:00 Intake Total 1500 ml Balance 1500 ml Intake Oral 1500 ml # Voids 15 # Bowel Movements 1 Medications Current Medications Medications Dose Ordered Sig/[place] Route Start Time Stop Time Status Last Admin Dose Admin Azithromycin 250 ml @ 125 mls/hr DAILY IV 04/12/25 10:00 04/12/25 11:34 125 MLS/HR Albuterol 2.5 mg Q6HPRN PRN NEB 04/11/25 16:30 04/13/25 00:33 2.5 MG Empaglifozin 10 mg DAILY PO 04/12/25 10:00 04/12/25 11:29 10 MG Levothyroxine Sodium 75 mcg QAM@0600 PO 04/12/25 06:00 04/13/25 05:27 75 MCG Sacubitril/ Valsartan 1 tab BID PO 04/11/25 22:00 04/12/25 21:23 1 TAB Clopidogrel Bisulfate 75 mg DAILY PO 04/12/25 10:00 04/12/25 11:28 75 MG Metoprolol Succinate 25 mg DAILY PO 04/12/25 10:00 04/12/25 11:30 25 MG Ondansetron HCl 4 mg Q4HP PRN IV 04/11/25 16:30 Acetaminophen 650 mg Q6HP PRN PO 04/11/25 16:30 Furosemide 40 mg BIDD IV 04/12/25 18:00 04/13/25 05:28 40 MG Apixaban 5 mg BID PO 04/13/25 10:00 Laboratory Results Laboratory Tests 04/13/25 06:12 Chemistry Test 04/13/25 06:12 Calcium Level 9.6 mg/dL (8.7-10.4) Urinalysis Test 04/12/25 09:55 Urine Color Colorless (Yellow) Urine Clarity Clear (Clear) Urine pH 5.0 (5.0-9.0) Urine Specific [place] 1.006 (1.001-1.035) Urine Protein Negative (Negative) Urine Ketones Negative (Negative) Urine Blood Negative /uL (Negative) Urine Nitrite Negative (Negative) Urine Bilirubin Negative (Negative) Urine Urobilinogen Normal mg/dL (Negative) Urine Leukocyte Esterase Trace /uL (Negative) Urine RBC 1 /hpf (0 - 4) Urine Microscopic WBC 1 /HPF (0-5) Urine Squamous Epithelial Cells Few /hpf (<5) Urine Bacteria None seen /hpf (None Seen) Urine Yeast (Budding) Occasional /hpf (None Urine Glucose Normal mg/dL (Normal) Labs and/or images reviewed: Labs reviewed by me, Image(s) reviewed by me Assessment/Plan Assessment/Plan Acute on chronic decompensated HFrEF, NYHA class III, cardiology consult by Dr. Aceves appreciated NSTEMI, likely type II secondary to above Severe coronary artery disease with history of triple-vessel CABG and multiple PTCAs (on Plavix) Ischemic cardiomyopathy ejection fraction 30 percent Unspecified atrial fibrillation (on Eliquis) Severe mitral valve regurgitation status post MitraClip (December 2023) Sick sinus syndrome status post permanent pacemaker insertion (Facet Solutionsronik) Hypertension Hyperlipidemia COPD Hypothyroidism History of TIA Chronic kidney disease Morbid obesity Will DC Tuesday Plan discussed with: Patient My Orders Orders - CELESTINE HARDY MD Procedure Category Date Status Time * Cardiology Consult CONS 04/12/25 Transmitted 13:13 Furosemide Injection PHA 04/12/25 In Process (Lasix Injection) 18:00 Date of Service: Apr 13, 2025 Billing Provider: CELESTINE HARDY MD Common Visit Codes: [id number] INP/OBS CARE(HIGH) CELESTINE HARDY MD Apr 13, 2025 09:52
--- NOTE | 2025-04-13 10:43 | ECG ---
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
[2025-04-13] MEDS: APIXABAN 5 MG TAB PO SCH (11:02)
--- NOTE | 2025-04-13 12:16 | ECG ---
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
--- NOTE | 2025-04-13 12:16 | ECG ---
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
--- NOTE | 2025-04-13 12:30 | DVHPN2 ---
Consult Progress Note Subjective Other Systems: Patient remains in paced rhythm on burner hand States that she feels better today Objective vital signs Vital Sign Date Time Temp Pulse Resp B/P (MAP) Pulse Ox O2 Delivery O2 Flow Rate FiO2 04/13/25 11:03 85 104/72 04/13/25 10:00 96 Room Air* 0 21 04/13/25 08:46 97.6 17 97.6 Total Intake and Output 04/12/25 04/12/25 04/13/25 15:00 23:00 07:00 Intake Total 1200 ml 300 ml Balance 1200 ml 300 ml medications Current Medications Medications Dose Ordered Sig/Bonilla Route Start Time Stop Time Status Last Admin Dose Admin Azithromycin 250 ml @ 125 mls/hr DAILY IV 04/12/25 10:00 04/13/25 11:01 125 MLS/HR Albuterol 2.5 mg Q6HPRN PRN NEB 04/11/25 16:30 04/13/25 00:33 2.5 MG Empaglifozin 10 mg DAILY PO 04/12/25 10:00 04/13/25 11:02 10 MG Levothyroxine Sodium 75 mcg QAM@0600 PO 04/12/25 06:00 04/13/25 05:27 75 MCG Sacubitril/ Valsartan 1 tab BID PO 04/11/25 22:00 04/13/25 11:01 1 TAB Clopidogrel Bisulfate 75 mg DAILY PO 04/12/25 10:00 04/13/25 11:01 75 MG Metoprolol Succinate 25 mg DAILY PO 04/12/25 10:00 04/13/25 11:03 25 MG Ondansetron HCl 4 mg Q4HP PRN IV 04/11/25 16:30 Acetaminophen 650 mg Q6HP PRN PO 04/11/25 16:30 Furosemide 40 mg BIDD IV 04/12/25 18:00 04/13/25 05:28 40 MG Apixaban 5 mg BID PO 04/13/25 10:00 04/13/25 11:02 5 MG Examination: GENERAL:Normal, LUNGS:Normal, CVS:Normal, NEURO:Normal laboratory and microbiology Laboratory Tests 04/13/25 06:12 Test 04/13/25 06:12 Range/Units Serum Glucose 98 74-106 mg/dL Problem List/Assessment/Plan Problem List/Assessment/Plan Acute on chronic decompensated HFrEF, NYHA class III NSTEMI, likely type II secondary to above Severe coronary artery disease with history of triple-vessel CABG and multiple PTCAs (on Plavix) Ischemic cardiomyopathy Unspecified atrial fibrillation (on Eliquis) Severe mitral valve regurgitation status post MitraClip (December 2023) Sick sinus syndrome status post permanent pacemaker insertion (Biotronik) Hypertension Hyperlipidemia COPD Severe pulmonary hypertension Hypothyroidism History of TIA Chronic kidney disease Morbid obesity Plan/Recommendations (Dr. Aceves): * Transthoracic echocardiogram on 04/11/2025 reveals an EF of 20%, RVSP 52 mmHg (under different ) * Previous echocardiogram reveals from 06/08/2024 reveals EF 30% (under different ) * Continue guideline directed medical therapy for CHF as renal function permits * Consider adding MRA (spironolactone) with improved kidney function * Strict intake and output, daily weights, maintain fluid restriction and low- sodium diet * Preload and afterload reduction * [id number] VASc score: 7 points * Continue with Eliquis therapy * Beta-keith for rate control * Continue single antiplatelet therapy (Plavix) and lipid-lowering agent * AVOID TRIPLE THERAPY. PLEASE DO NOT RESTART ASPIRIN. * Upgrade to telemetry monitoring for close cardiac surveillance * Permanent pacemaker interrogation Case discussed with . Thank you for allowing us to care for this patient. Please call with any questions or concerns. This medical document was created using an electronic medical record system with voice recognition software and computerized dictation system. Although this document has been carefully reviewed, there might still be some phonetic and typographical errors. Occasional wrong-word or ``sound-alike substitutions may have occurred due to the inherent limitations of voice recognition software. These areas are purely typographical due to imperfections of the software programs and do not reflect any compromise in the patient's medical care. Please read the chart carefully and recognize, using context, where these substitutions have occurred. Plan discussed with: Patient Date of Service: Apr 13, 2025 Billing Provider: LECNHO JEAN Common Visit Codes: [id number] CARE 30-74 MIN LENCHO JEAN Apr 13, 2025 12:30
--- NOTE | 2025-04-13 22:36 | DVHPN2 ---
Consult Progress Note Subjective Other Systems: Patient was seen and evaluated in follow up. Patient complains of a non productive cough. 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 Telemetry reviewed. Objective vital signs Vital Sign Date Time Temp Pulse Resp B/P (MAP) Pulse Ox O2 Delivery O2 Flow Rate FiO2 04/13/25 12:45 98.0 69 17 127/72 (90) 94 98.0 04/13/25 10:00 Room Air* 0 21 Total Intake and Output 04/12/25 04/12/25 04/13/25 15:00 23:00 07:00 Intake Total 1200 ml 300 ml Balance 1200 ml 300 ml medications Current Medications Medications Dose Ordered Sig/Bonilla Route Start Time Stop Time Status Last Admin Dose Admin Azithromycin 250 ml @ 125 mls/hr DAILY IV 04/12/25 10:00 04/13/25 11:01 125 MLS/HR Albuterol 2.5 mg Q6HPRN PRN NEB 04/11/25 16:30 04/13/25 00:33 2.5 MG Empaglifozin 10 mg DAILY PO 04/12/25 10:00 04/13/25 11:02 10 MG Levothyroxine Sodium 75 mcg QAM@0600 PO 04/12/25 06:00 04/13/25 05:27 75 MCG Sacubitril/ Valsartan 1 tab BID PO 04/11/25 22:00 04/13/25 11:01 1 TAB Clopidogrel Bisulfate 75 mg DAILY PO 04/12/25 10:00 04/13/25 11:01 75 MG Metoprolol Succinate 25 mg DAILY PO 04/12/25 10:00 04/13/25 11:03 25 MG Ondansetron HCl 4 mg Q4HP PRN IV 04/11/25 16:30 Acetaminophen 650 mg Q6HP PRN PO 04/11/25 16:30 Furosemide 40 mg BIDD IV 04/12/25 18:00 04/13/25 05:28 40 MG Apixaban 5 mg BID PO 04/13/25 10:00 04/13/25 11:02 5 MG Examination: GENERAL:Normal, LUNGS:Normal, CVS:Normal, NEURO:Normal laboratory and microbiology Laboratory Tests 04/13/25 06:12 Test 04/13/25 06:12 Range/Units Serum Glucose 98 74-106 mg/dL Problem List/Assessment/Plan Problem List/Assessment/Plan Problem List Acute on chronic decompensated HFrEF, NYHA class III. NSTEMI, likely type II secondary to above. Severe coronary artery disease with history of triple-vessel CABG and multiple PTCAs (on Plavix). Ischemic cardiomyopathy. Unspecified atrial fibrillation (on Eliquis). Severe mitral valve regurgitation status post MitraClip (December 2023). Sick sinus syndrome status post permanent pacemaker insertion (Biotronik). Hypertension. Hyperlipidemia. COPD. Hypothyroidism. History of TIA. Chronic kidney disease. Morbid obesity. Plan/Recommendation Continued all current supportive medical care. Patient has been seen by Swetha Pack NP on my behalf, her and I discussed the plan with the patient. Transthoracic echocardiogram on 04/11/2025 reveals an EF of 20%, RVSP 52 mmHg (under different ). Previous echocardiogram reveals from 06/08/2024 reveals EF 30% (under different ). Initiate guideline directed medical therapy for CHF as renal function permits. Strict intake and output, daily weights, maintain fluid restriction and low- sodium diet. Preload and afterload reduction. [id number] VASc score: 7 points. Therapeutic Lovenox, transition back to Eliquis when appropriate. Beta-keith for rate control. Continue single antiplatelet therapy (Plavix) and lipid-lowering agent. AVOID TRIPLE THERAPY. PLEASE DO NOT RESTART ASPIRIN. Upgrade to telemetry monitoring for close cardiac surveillance. Additional plan as per the hospital course. Plan discussed with: Patient Date of Service: Apr 13, 2025 Billing Provider: SARAH HALL MD Cardiology Common Codes: [id number] [facility] SARAH HALL MD Apr 13, 2025 13:37
[2025-04-14] VITALS (8 sets, daily range): BP systolic 91–110; BP diastolic 58–63; PULSE 67–70; RESP 18; TEMP 36.5; O2SAT 93–95
[2025-04-14 06:12] LABS: Hematocrit 45.1 % (36.0-46.0); Hemoglobin 15.4 g/dL (12.2-16.2); Mean Corpuscular Hemoglobin 33.9 pg (28.0-32.0); Mean Corpuscular Volume 99.3 fL (80.0-100.0); Nucleated Red Blood Cells % 0.1 %
[2025-04-14 06:23] LABS: Chloride 99 mmol/L (98-107); Potassium 4.0 mmol/L (3.5-5.1); Sodium 140 mmol/L (136-145)
[2025-04-14 06:24] LABS: Anion Gap 10 (5-15); Calcium 9.3 mg/dL (8.7-10.4); Carbon Dioxide 31 mmol/L (20-31)
[2025-04-14 06:29] LABS: BUN/Creatinine Ratio 15.0 (10.0-20.0); Glucose 89 mg/dL (74-106)
[2025-04-14 06:30] LABS: Blood Urea Nitrogen 34 mg/dL (9-23)
--- NOTE | 2025-04-14 09:36 | DVHPN2 ---
Reviewed: Care Plan Changes from previous H/P or p: No Changes Objective Vitals Vital Signs Date Time Temp Pulse Resp B/P (MAP) Pulse Ox O2 Delivery O2 Flow Rate FiO2 04/14/25 08:10 67 18 95 Room Air* 0 21 04/14/25 05:34 113/65 04/14/25 05:00 97.9 97.9 Intake/Output Intake and Output 04/14/25 06:59 Intake Total 1750 ml Balance 1750 ml Intake Oral 1500 ml IV Total 250 ml # Voids 8 Medications Current Medications Medications Dose Ordered Sig/Bonilla Route Start Time Stop Time Status Last Admin Dose Admin Azithromycin 250 ml @ 125 mls/hr DAILY IV 04/12/25 10:00 04/13/25 11:01 125 MLS/HR Empaglifozin 10 mg DAILY PO 04/12/25 10:00 04/13/25 11:02 10 MG Levothyroxine Sodium 75 mcg QAM@0600 PO 04/12/25 06:00 04/14/25 05:34 75 MCG Sacubitril/ Valsartan 1 tab BID PO 04/11/25 22:00 04/13/25 21:46 1 TAB Clopidogrel Bisulfate 75 mg DAILY PO 04/12/25 10:00 04/13/25 11:01 75 MG Metoprolol Succinate 25 mg DAILY PO 04/12/25 10:00 04/13/25 11:03 25 MG Ondansetron HCl 4 mg Q4HP PRN IV 04/11/25 16:30 Acetaminophen 650 mg Q6HP PRN PO 04/11/25 16:30 Furosemide 40 mg BIDD IV 04/12/25 18:00 04/14/25 05:34 40 MG Apixaban 5 mg BID PO 04/13/25 10:00 04/13/25 21:46 5 MG Laboratory Results Laboratory Tests 04/14/25 05:30 Chemistry Test 04/14/25 05:30 Calcium Level 9.3 mg/dL (8.7-10.4) Urinalysis Test 04/12/25 09:55 Urine Color Colorless (Yellow) Urine Clarity Clear (Clear) Urine pH 5.0 (5.0-9.0) Urine Specific [place] 1.006 (1.001-1.035) Urine Protein Negative (Negative) Urine Ketones Negative (Negative) Urine Blood Negative /uL (Negative) Urine Nitrite Negative (Negative) Urine Bilirubin Negative (Negative) Urine Urobilinogen Normal mg/dL (Negative) Urine Leukocyte Esterase Trace /uL (Negative) Urine RBC 1 /hpf (0 - 4) Urine Microscopic WBC 1 /HPF (0-5) Urine Squamous Epithelial Cells Few /hpf (<5) Urine Bacteria None seen /hpf (None Seen) Urine Yeast (Budding) Occasional /hpf (None Urine Glucose Normal mg/dL (Normal) Labs and/or images reviewed: Labs reviewed by me, Image(s) reviewed by me Assessment/Plan Assessment/Plan Acute on chronic decompensated HFrEF, NYHA class III, cardiology consult by Dr. Aceves appreciated NSTEMI, likely type II secondary to above Severe coronary artery disease with history of triple-vessel CABG and multiple PTCAs (on Plavix), cardiology suggested not to take aspirin Ischemic cardiomyopathy ejection fraction 20 percent on 04/11/2025, was 30 percent June 2024 Unspecified atrial fibrillation (on Eliquis) Severe mitral valve regurgitation status post MitraClip (December 2023) Sick sinus syndrome status post permanent pacemaker insertion (SlideRocketronik), pacemaker was interrogated and working well Hypertension Hyperlipidemia COPD Hypothyroidism History of TIA Chronic kidney disease Morbid obesity Discussed with the patient and she is agreeable with the discharge plan RN Don present Plan discussed with: Patient Date of Service: Apr 14, 2025 Billing Provider: CELESTINE HARDY MD Common Visit Codes: [id number] INP/OBS CARE(HIGH) CELESTINE HARDY MD Apr 14, 2025 09:36
--- NOTE | 2025-04-14 09:41 | DVHDS2 ---
Discharge Summary Date of Admission Apr 11, 2025 at 16:22 Date of Discharge: Apr 14, 2025 Admitting Diagnosis Shortness of breaths Wounds: None Labs/Diagnostic Data: Laboratory Results Test 04/14/25 05:30 04/13/25 01:30 04/12/25 09:55 04/12/25 06:19 White Blood Count 8.2 10^3/uL (4.4-10.8) Red Blood Count 4.55 10^6/uL (4.0-5.20) Hemoglobin 15.4 g/dL (12.2-16.2) Hematocrit 45.1 % (36.0-46.0) Mean Corpuscular Volume 99.3 fL (80.0-100.0) Mean Corpuscular Hemoglobin 33.9 pg (28.0-32.0) Mean Corpuscular Hemoglobin Concent 34.1 g/dL (32.0-36.0) Red Cell Distribution Width 13.7 % (11.8-14.3) Platelet Count 260 10^3/uL (140-450) Mean Platelet Volume 8.1 fL (6.9-10.8) Neutrophils (%) (Auto) 55.0 % (37.0-80.0) Lymphocytes (%) (Auto) 27.8 % (10.0-50.0) Monocytes (%) (Auto) 14.8 % (0.0-12.0) Eosinophils (%) (Auto) 1.8 % (0.0-7.0) Basophils (%) (Auto) 0.6 % (0.0-2.0) Neutrophils # (Auto) 4.5 10 ^3/uL (1.6-8.6) Lymphocytes # (Auto) 2.3 10 ^3/uL (0.4-5.4) Monocytes # (Auto) 1.2 10 ^3/uL (0-1.3) Eosinophils # (Auto) 0.1 10 ^3/uL (0-0.8) Basophils # (Auto) 0 10 ^3/uL (0-0.2) Nucleated Red Blood Cells 0.1 % Sodium Level 140 mmol/L (136-145) Potassium Level 4.0 mmol/L (3.5-5.1) Chloride Level 99 mmol/L (98-107) Carbon Dioxide Level 31 mmol/L (20-31) Anion Gap 10 (5-15) Blood Urea Nitrogen 34 mg/dL (9-23) Creatinine 2.27 mg/dL (0.550-1.02) Glomerular Filtration Rate Calc 22 mL/min (>90) BUN/Creatinine Ratio 15.0 (10.0-20.0) Serum Glucose 89 mg/dL (74-106) Calcium Level 9.3 mg/dL (8.7-10.4) Influenza Type A Antigen Negative (Negative) Influenza Type B Antigen Negative (Negative) SARS-CoV-2 Antigen (Rapid) Negative (NEGATIVE) Urine Color Colorless (Yellow) Urine Clarity Clear (Clear) Urine pH 5.0 (5.0-9.0) Urine Specific [place] 1.006 (1.001-1.035) Urine Protein Negative (Negative) Urine Ketones Negative (Negative) Urine Blood Negative /uL (Negative) Urine Nitrite Negative (Negative) Urine Bilirubin Negative (Negative) Urine Urobilinogen Normal mg/dL (Negative) Urine Leukocyte Esterase Trace /uL (Negative) Urine RBC 1 /hpf (0 - 4) Urine Microscopic WBC 1 /HPF (0-5) Urine Squamous Epithelial Cells Few /hpf (<5) Urine Bacteria None seen /hpf (None Seen) Urine Yeast (Budding) Occasional /hpf (None Urine Glucose Normal mg/dL (Normal) Hemoglobin A1c 5.1 % A1C (<5.7) Magnesium Level 1.9 mg/dL (1.6-2.6) Triglycerides Level 57 mg/dL (< 150) Cholesterol Level 141 mg/dL (< 200) LDL Cholesterol 83 mg/dL (< 100) HDL Cholesterol 52 mg/dL (40-59) Thyroid Stimulating Hormone (TSH) 1.61 uIU/mL (0.55-4.78) Test 04/11/25 16:00 04/11/25 13:10 Troponin I High Sensitivity 64 ng/L (</=34) B-Type Natriuretic Peptide 194.53 pg/mL (0-100) Other Laboratory Tests 04/14/25 05:30 Brief Hx & Hospital Course: 74-year-old female with multiple medical problems including hypertension hyperlipidemia COPD hypothyroidism history of TIA chronic kidney disease sick sinus syndrome status post permanent pacemaker severe mitral valve regurgitation status post mitral clip December 2023 severe coronary artery disease status post CABG and multiple stents on Plavix atrial fibrillation on Eliquis congestive heart failure with the ejection fraction 30 percent June 2024 came in for shortness of breaths. Found to have exacerbation of CHF treated with the CHF medications per protocol seen by Cardiology Dr. Aceves repeat echocardiogram 04/11/2025 showed ejection fraction down to 20 percent. Pacemaker was interrogated working well. Dr. Aceves suggested no aspirin but continue Plavix and Eliquis and follow up with her primary western philosophy professor Dr. Marmolejo. Reviewed all home medications Patient is discharged home. Patient agrees with the discharge plan RN Don present at bedside Consults/Reason for consult Cardiology Dr. Aceves Operations or Procedures Echocardiogram Pacemaker interrogation Condition at Discharge: Fair Final Diagnosis/Problems List Acute on chronic decompensated HFrEF, NYHA class III, cardiology consult by Dr. Aceves appreciated NSTEMI, likely type II secondary to above Severe coronary artery disease with history of triple-vessel CABG and multiple PTCAs (on Plavix), cardiology suggested not to take aspirin Ischemic cardiomyopathy ejection fraction 20 percent on 04/11/2025, was 30 percent June 2024 Unspecified atrial fibrillation (on Eliquis) Severe mitral valve regurgitation status post MitraClip (December 2023) Sick sinus syndrome status post permanent pacemaker insertion (Danlanronik), pacemaker was interrogated and working well Hypertension Hyperlipidemia COPD Hypothyroidism History of TIA Chronic kidney disea Discharge Disposition: Home Discharge Instruct/Medications Diet: Cardiac 2g Na,low cholest Activity: Light activity Follow Up/Referral: Resume all your previous home medications including Eliquis and Plavix Do not take aspirin Follow up with your primary western philosophy professor Dr. Marmolejo in one week Return to ER if symptoms worsen Medications: None Reviewed all home meds Scheduled Allopurinol (Allopurinol), 1 TAB PO DAILY, (Reported) Apixaban Base (Eliquis), 1 TAB PO BID, (Reported) Citalopram Hydrobromide (Citalopram Hydrobromide), 1 TAB PO DAILY, (Reported) Clopidogrel Bisulfate (Clopidogrel), 1 TAB PO DAILY, (Reported) Empagliflozin (Jardiance), 1 TAB PO DAILY, (Reported) Furosemide (Furosemide), 1 TAB PO DAILY, (Reported) Levothyroxine Sodium (Levothyroxine Sodium), 1 TAB PO DAILY, (Reported) Metoprolol Succinate (Metoprolol Succinate Er), 12.5 MG PO BID, (Reported) Sacubitril-Valsartan (Entresto 49-51 mg), 1 TAB PO BID, (Reported) Spironolactone (Spironolactone), 1 TAB PO DAILY, (Reported) 39 (Time taken for discharge summary 39 minutes) Discharge Statement: "Patient was advised to return to the ER or call 911 if any headaches, dizziness, shortness of breath, chest pain, abdominal pain, bleeding, fevers, or worsening of medical condition. Patient was counseled about treatment plan, medications, possible side effects, patientverbalized understanding. All questions were answered to the best of my ability. This discharge took greater then 30 minutes in planning, reviewing documentation, counseling the patient, and discussing with other team members." ASSESSMENT ASSESSMENT Hospital Course Improved marginally Assessment Acute on chronic decompensated HFrEF, NYHA class III, cardiology consult by Dr. Aceves appreciated NSTEMI, likely type II secondary to above Severe coronary artery disease with history of triple-vessel CABG and multiple PTCAs (on Plavix), cardiology suggested not to take aspirin Ischemic cardiomyopathy ejection fraction 20 percent on 04/11/2025, was 30 percent June 2024 Unspecified atrial fibrillation (on Eliquis) Severe mitral valve regurgitation status post MitraClip (December 2023) Sick sinus syndrome status post permanent pacemaker insertion (Biotronik), pacemaker was interrogated and working well Hypertension Hyperlipidemia COPD Hypothyroidism History of TIA Chronic kidney disea Date of Service: Apr 14, 2025 Billing Provider: CELESTINE HARDY MD Common Visit Codes: [id number] INP/OBS CARE(HIGH) CELESTINE HARDY MD Apr 14, 2025 09:41
--- NOTE | 2025-04-14 18:49 | DVHPN2 ---
Progress Note - Dictate Date Seen: Apr 14, 2025 Medical Necessity Reason Pt with a Central, PICC or Fol: No Subjective Patient was seen and evaluated in follow-up. Patient has no new complaints at this time. Patient denies any cardiac symptoms. Patient is cardiac stable for discharge. Telemetry reviewed. vital signs Vital Sign Date Time Temp Pulse Resp B/P (MAP) Pulse Ox O2 Delivery O2 Flow Rate FiO2 04/14/25 10:54 36.5 67 04/14/25 10:00 95 Room Air 0.0 04/14/25 10:00 21 04/14/25 09:52 91/63 04/14/25 09:00 18 Total Intake and Output 04/13/25 04/13/25 04/14/25 15:00 23:00 07:00 Intake Total 250 ml 900 ml 600 ml Balance 250 ml 900 ml 600 ml objective GENERAL: Alert and oriented x 3. No acute distress. Obese. EYES: PERRL, EOMI. Anicteric. HENT: Moist mucous membranes. LUNGS: Clear to auscultation bilaterally. CARDIOVASCULAR: Regular rate and rhythm. ABDOMEN: Soft, nontender and nondistended. EXTREMITIES: No edema. NEUROLOGIC: No focal neurological deficits. SKIN: Warm, dry. laboratory and microbiology Laboratory Tests 04/14/25 05:30 Test 04/14/25 05:30 Range/Units Serum Glucose 89 74-106 mg/dL Problem List Acute on chronic decompensated HFrEF, NYHA class III. NSTEMI, likely type II secondary to above. Severe coronary artery disease with history of triple-vessel CABG and multiple PTCAs (on Plavix). Ischemic cardiomyopathy. Unspecified atrial fibrillation (on Eliquis). Severe mitral valve regurgitation status post MitraClip (December 2023). Sick sinus syndrome status post permanent pacemaker insertion (Grid Netronik). Hypertension. Hyperlipidemia. COPD. Hypothyroidism. History of TIA. Chronic kidney disease. Morbid obesity. Assessment/Plan Continued all current supportive medical care. Eliquis. Diuretics with Lasix. Metoprolol. Entresto. IV antibiotics as ordered. Additional plan as per the hospital course. Plan discussed with: Patient SARAH HALL MD Apr 14, 2025 13:14
== END 2025-04-14 12:25 | disposition home or self-care (01) | DRG 280 ==
LOC: ER 12:25 → OVERFLOW 16:22 → CENTRAL 22:01 → TELE-CENTR 04-13 01:30
PROVIDERS: ADMIT Family Medicine; ATTEND Family Medicine
PROC: 4B02XSZ Measurement of Cardiac Pacemaker, External Approach (ICD-10-PCS; principal; 2025-04-14)
DX: I13.0 Hypertensive heart and chronic kidney disease with heart failure and stage 1 through stage 4 chronic kidney disease, or unspecified chronic kidney disease (principal); I50.23 Acute on chronic systolic (congestive) heart failure; I21.A1 Myocardial infarction type 2; J96.20 Acute and chronic respiratory failure, unspecified whether with hypoxia or hypercapnia; J44.1 Chronic obstructive pulmonary disease with (acute) exacerbation; Z79.01 Long term (current) use of anticoagulants; E03.9 Hypothyroidism, unspecified; E66.01 Morbid (severe) obesity due to excess calories; I34.0 Nonrheumatic mitral (valve) insufficiency; N18.9 Chronic kidney disease, unspecified; Z68.41 Body mass index [BMI] 40.0-44.9, adult; I25.5 Ischemic cardiomyopathy; I49.5 Sick sinus syndrome; E78.00 Pure hypercholesterolemia, unspecified; J98.4 Other disorders of lung; I25.10 Atherosclerotic heart disease of native coronary artery without angina pectoris; I48.91 Unspecified atrial fibrillation; Z20.822 Contact with and (suspected) exposure to COVID-19; Z79.899 Other long term (current) drug therapy; I25.2 Old myocardial infarction; Z79.84 Long term (current) use of oral hypoglycemic drugs; Z80.6 Family history of leukemia; Z82.49 Family history of ischemic heart disease and other diseases of the circulatory system; Z83.3 Family history of diabetes mellitus; Z86.73 Personal history of transient ischemic attack (TIA), and cerebral infarction without residual deficits; Z87.891 Personal history of nicotine dependence; Z88.8 Allergy status to other drugs, medicaments and biological substances; Z95.0 Presence of cardiac pacemaker; Z95.1 Presence of aortocoronary bypass graft
CPT/HCPCS: 36415; 71045; 80048; 80061; 81001; 83036; 83735; 83880; 84443; 84484; 85025; 87426; 87804; 93005; 94640; 94644; 99291; G0378; J2405